=== PATIENT | female | born 1985 | race African-American/Black ===

== ENCOUNTER → 2017-01-05 | Outpatient (CLI) | payer SELFPAY | LOC: OD 13:06 | PROVIDERS: ATTEND Emergency Medicine | DX: F43.10 Post-traumatic stress disorder, unspecified (principal); Z53.8 Procedure and treatment not carried out for other reasons ==

== ENCOUNTER 2019-10-22 17:46 | Emergency (ER) | payer SELFPAY ==
[2019-10-22] MEDS ORDERED: ONDANSETRON HCL INJ/PF 4 MG/2 ML SDV IV ONE (19:31)
[2019-10-22 19:49] LABS: ABSOLUTE BASOPHILS # (AUTO) 0.1 10^3/uL (0.0-0.2); ABSOLUTE EOSINOPHILS # (AUTO) 0.2 10^3/uL (0.0-0.6); EOSINOPHILS % (AUTO) 2.2 % (0-6); TOTAL CELLS COUNTED % (AUTO) 100 %
[2019-10-22 19:54] LABS: ABSOLUTE LYMPHOCYTES (AUTO) 3.2 10^3/uL (0.5-4.7); ABSOLUTE MONOCYTES (AUTO) 0.4 10^3/uL (0.1-1.4); ABSOLUTE NEUT (AUTO) 6.8 10^3/uL (1.7-8.2); BASOPHILS % (AUTO) 0.6 % (0-2); HEMATOCRIT 35.7 % (36.0-47.0); HEMOGLOBIN 12.1 g/dL (12.0-15.5); LYMPHOCYTES % (AUTO) 29.4 % (13-45); MEAN CORPUSCULAR HEMOGLOBIN 30.7 pg (27.0-33.4); MEAN CORPUSCULAR HGB CONC 33.8 g/dL (32.0-36.0); MEAN CORPUSCULAR VOLUME 91 fl (80-97); PLATELET COUNT 333 10^3/uL (150-450); RED BLOOD COUNT 3.93 10^6/uL (3.72-5.28); RED CELL DISTRIBUTION WIDTH 14.1 % (11.5-14.0); SEGMENTED NEUTROPHILS % (AUTO) 63.8 % (42-78); WHITE BLOOD COUNT 10.7 10^3/uL (4.0-10.5)
[2019-10-22] MEDS: NORMAL SALINE 1000 ML 1,000 ML IV PRN ×2 (19:58→21:39)
[2019-10-22 19:59] LABS: APPEARANCE,URINE SLIGHTLY-CLOUDY; BILIRUBIN,URINE NEGATIVE (NEGATIVE); COLOR,URINE YELLOW; GLUCOSE, URINE NEGATIVE (NEGATIVE); KETONES,URINE TRACE mg/dL (NEGATIVE); LEUKOCYTE ESTERASE,URINE NEGATIVE (NEGATIVE); NITRITE,URINE NEGATIVE (NEGATIVE); PROTEIN,URINE 30 mg/dL (NEGATIVE); URINE SPECIFIC GRAVITY 1.018
--- NOTE | 2019-10-22 20:05 | ER Document Report ---
ED General - General Chief Complaint: Abdominal Pain Stated Complaint: ABDOMINAL PAIN, VOMITING Time Seen by Provider: 10/22/19 18:59 Primary Care Provider: MARY ARIAS MD [Primary Care Provider] - Follow up as needed TRAVEL OUTSIDE OF THE [place] IN LAST 30 DAYS: No - HPI Notes: Chief complaint: Nausea, vomiting, sore throat, malaise for 3 days. HPI: Generally healthy 34-year-old female with 3-day history of symptoms as above. Not eating and drinking today. Mild epigastric cramping. Takes no regular medications. No known allergies. Last menses unknown. No contraception. No known COVID exposure. No travel outside area. - Related Data Allergies/Adverse Reactions: No Known Allergies Allergy (Verified 10/22/19 18:28) Past Medical History - General Information source: Patient, [facility] Records - Social History Smoking Status: Current Every Day Smoker Frequency of alcohol use: None Drug Abuse: None Family History: Reviewed & Not Pertinent Patient has homicidal ideation: No Review of Systems - Review of Systems Notes: Constitutional: Subjective fever. HENT: Positive sore throat. Eyes: Negative for visual changes. Cardiovascular: Negative for chest pain. Respiratory: Negative for shortness of breath. Gastrointestinal: As per HPI no melena or hematochezia. Genitourinary: Negative for dysuria. Musculoskeletal: Negative for back pain. Skin: Negative for rash. Neurological: Dull headache present. No focal weakness or numbness. 10 point ROS negative except as marked above and in HPI. Physical Exam - Vital signs Vitals: Temp Pulse Resp BP Pulse Ox 99.7 F 100 18 119/90 H 100 10/22/19 17:46 10/22/19 17:46 10/22/19 17:46 10/22/19 17:46 10/22/19 17:46 - Notes Notes: Remote Exam Using Telemedicine System GENERAL: Well-developed well-nourished appearing in no acute distress. SKIN: no rashes. HEAD: Normocephalic atraumatic. EYES: PERRL. EOMI. Conjunctivae and sclerae clear. NOSE: CLEAR. MOUTH: Moist mucosa. Good dentition. No stridor or edema. No drooling. NECK: Full ROM. No visible masses or thyromegaly. No JVD. BACK: Symmetrical. CHEST: Respirations unlabored. Expands symmetrical. ABDOMEN: Non-distended. Nontender when I have the patient present all 4 quadrants. GENITALIA: Deferred. EXTREMITIES: No edema. NEUROLOGICAL: GCS 15. Alert and oriented x3. Normal gait. Fluent speech. Cranial nerves II through XII intact. Motor and cerebellar normal. PSYCHIATRIC: Appropriate affect. Course - Re-evaluation Re-evalutation: 10/23/19 02:00 Patient received 2 L normal saline. She also got some Zofran. She slept for an extended period time and upon awakening feels much better. She wants to go home and I think this is appropriate. Her influenza and strep tests are negative. Her CBC and chemistry profile are unremarkable and test is negative. Findings and recommendations discussed with the patient and she fully understands these and is in agreement with outpatient management. - Vital Signs Vital signs: Temp Pulse Resp BP Pulse Ox 98.1 F 80 16 119/79 100 10/23/19 01:51 10/23/19 01:51 10/23/19 01:51 10/23/19 01:51 10/23/19 01:51 - Laboratory Result Diagrams: 10/22/19 19:15 10/22/19 20:54 Laboratory results interpreted by me: 10/22/19 10/22/19 10/22/19 18:25 19:15 20:54 WBC 10.7 H Hct 35.7 L RDW 14.1 H Chloride 108 H Urine Protein 30 H Urine Ketones TRACE H Urine Urobilinogen 2.0 H 10/22/19 21:11 WBC Hct RDW Chloride Urine Protein 30 H Urine Ketones 20 H Urine Urobilinogen Discharge - Discharge Clinical Impression: Dehydration, Acute gastroenteritis Condition: Stable Disposition: HOME, SELF-CARE Instructions: Vomiting ([facility]) Additional Instructions: Increase oral fluids. Take Zofran as needed. Follow-up with your doctor within the next 24 hours. Return here as needed for new or worsening symptoms: Pain that is worsening or unimproved Uncontrolled vomiting High fever or shaking chills Overall worsening Referrals: MARY ARIAS MD [Primary Care Provider] - Follow up as needed
[2019-10-22 20:43] LABS: A TYPE INFLUENZA AG NEGATIVE (NEGATIVE)
[2019-10-22 20:44] LABS: B INFLUENZA AG NEGATIVE (NEGATIVE)
[2019-10-22 21:26] LABS: ALBUMIN 4.3 g/dL (3.5-5.0); ALKALINE PHOSPHATASE 69 U/L (38-126); ANION GAP 7 (5-19); ASPARTATE AMINO TRANSFERASE 20 U/L (14-36); BILIRUBIN,TOTAL 0.2 mg/dL (0.2-1.3); BLOOD UREA NITROGEN 8 mg/dL (7-20); CALCIUM 9.3 mg/dL (8.4-10.2); CARBON DIOXIDE 24 mmol/L (22-30); CHLORIDE 108 mmol/L (98-107); GLUCOSE 85 mg/dL (75-110); POTASSIUM 3.8 mmol/L (3.6-5.0); TOTAL PROTEIN 7.4 g/dL (6.3-8.2)
[2019-10-22 21:33] LABS: AMORPHOUS SEDIMENT,URINE 1+ /HPF; APPEARANCE,URINE TURBID; BILIRUBIN,URINE NEGATIVE (NEGATIVE); COLOR,URINE YELLOW; GLUCOSE, URINE NEGATIVE (NEGATIVE); KETONES,URINE 20 mg/dL (NEGATIVE); PROTEIN,URINE 30 mg/dL (NEGATIVE); UROBILINOGEN,URINE NEGATIVE mg/dL (<2.0)
[2019-10-23] MEDS ORDERED: ONDANSETRON 4 MG TAB.RAPDIS PO ONE (01:46)
[2019-10-23] MEDS ORDERED: ONDANSETRON ODT 4 MG TAB (6 TAB/ER DISP) PO PRN (01:52)
[2019-10-23 01:53] VITALS: BP 119/79
== END 2019-10-23 02:17 | disposition home or self-care (01) ==
LOC: ER 17:46
DX: K52.9 Noninfective gastroenteritis and colitis, unspecified (principal); E86.0 Dehydration; R11.2 Nausea with vomiting, unspecified; J02.9 Acute pharyngitis, unspecified; R53.81 Other malaise; R10.13 Epigastric pain; F17.200 Nicotine dependence, unspecified, uncomplicated
CPT/HCPCS: 99283; 96361; 96374; 36415; 87070; 87880; 83690; 83735; 84703; 85025; 80053; 81001; 87804; S0119; J2405; J7030

== ENCOUNTER 2019-10-31 21:29 | Inpatient (IN) | payer SELFPAY ==
[2019-10-31 23:47] LABS: ABSOLUTE BASOPHILS # (AUTO) 0.1 10^3/uL (0.0-0.2); ABSOLUTE LYMPHOCYTES (AUTO) 2.5 10^3/uL (0.5-4.7); ABSOLUTE MONOCYTES (AUTO) 1.4 10^3/uL (0.1-1.4); ABSOLUTE NEUT (AUTO) 9.8 10^3/uL (1.7-8.2); BASOPHILS % (AUTO) 0.8 % (0-2); EOSINOPHILS % (AUTO) 0.1 % (0-6); HEMATOCRIT 37.6 % (36.0-47.0); HEMOGLOBIN 12.3 g/dL (12.0-15.5); MEAN CORPUSCULAR HEMOGLOBIN 29.8 pg (27.0-33.4); MEAN CORPUSCULAR HGB CONC 32.8 g/dL (32.0-36.0); MEAN CORPUSCULAR VOLUME 91 fl (80-97); MONOCYTES % (AUTO) 10.3 % (3-13); PLATELET COUNT 266 10^3/uL (150-450); RED BLOOD COUNT 4.14 10^6/uL (3.72-5.28); RED CELL DISTRIBUTION WIDTH 14.1 % (11.5-14.0); SEGMENTED NEUTROPHILS % (AUTO) 70.8 % (42-78); TOTAL CELLS COUNTED % (AUTO) 100 %; WHITE BLOOD COUNT 13.8 10^3/uL (4.0-10.5)
[2019-10-31 23:52] LABS: ALBUMIN 4.3 g/dL (3.5-5.0); ALKALINE PHOSPHATASE 104 U/L (38-126); ANION GAP 12 (5-19); ASPARTATE AMINO TRANSFERASE 663 U/L (14-36); BILIRUBIN,DIRECT 0.4 mg/dL (0.0-0.4); BLOOD UREA NITROGEN 7 mg/dL (7-20); CALCIUM 9.7 mg/dL (8.4-10.2); CARBON DIOXIDE 19 mmol/L (22-30); CHLORIDE 108 mmol/L (98-107); POTASSIUM 3.6 mmol/L (3.6-5.0); SALICYLATE 1.2 mg/dL (2.0-20.0); TOTAL PROTEIN 7.4 g/dL (6.3-8.2)
[2019-10-31 23:57] LABS: ALCOHOL < 10 mg/dL (NONE DETECTED)
[2019-11-01] LABS: ACETAMINOPHEN 125 ug/mL (10-30); GLUCOSE 49 mg/dL (75-110)
--- NOTE | 2019-11-01 00:14 | ER Document Report ---
ED General - General Chief Complaint: Overdose Stated Complaint: POSSIBLE OVERDOSE Time Seen by Provider: 10/31/19 22:58 Primary Care Provider: MARY ARIAS MD [Primary Care Provider] - Follow up as needed Mode of Arrival: Ambulatory Information source: Patient TRAVEL OUTSIDE OF THE [place] IN LAST 30 DAYS: No - HPI Onset: Other - patient ingested Tylenol at 1600 in an attempt to harm herself. Onset/Duration: Sudden Quality of pain: Achy, Cramping Severity: Moderate Pain Level: 3 Associated symptoms: Nausea, Vomiting Exacerbated by: Denies Relieved by: Denies Similar symptoms previously: Yes - patient has had thoughts of SI before Recently seen / treated by doctor: No Notes: 34 year old female with a history of Depression here in the ER for evaluation after a suicide attempt. The patient says she took 30 tablets of Tylenol at 1600 in an attempt to kill herself. The patient says she has a lot going on with her right now and it is hard for her to handle things. The patient has developed abdominal pain, nausea, and vomiting since the Tylenol ingestion. - Related Data Allergies/Adverse Reactions: No Known Allergies Allergy (Verified 10/22/19 18:28) Past Medical History - General Information source: Patient - Social History Smoking Status: Current Every Day Smoker Frequency of alcohol use: None Drug Abuse: None Family History: Reviewed & Not Pertinent Patient has homicidal ideation: No Review of Systems - Review of Systems Constitutional: No symptoms reported EENT: No symptoms reported Cardiovascular: No symptoms reported Respiratory: No symptoms reported Gastrointestinal: Abdominal pain, Nausea, Vomiting Genitourinary: No symptoms reported Female Genitourinary: No symptoms reported Musculoskeletal: No symptoms reported Skin: No symptoms reported Hematologic/Lymphatic: No symptoms reported Neurological/Psychological: Depression, Suicidal ideation, Other -: Yes All other systems reviewed and negative Physical Exam - Vital signs Vitals: Temp Pulse Resp BP Pulse Ox 98.4 F 96 16 98/70 L 94 10/31/19 21:34 10/31/19 21:34 10/31/19 21:34 10/31/19 21:34 10/31/19 21:34 - Notes Notes: GENERAL: Poorly groomed. Well-nourished slightly lethargic. HEAD: Atraumatic, normocephalic. EYES: Pupils equal round and reactive to light, extraocular movements intact, sclera anicteric, conjunctiva are normal. ENT: External ears normal, nares patent, oropharynx clear without exudates. Moist mucous membranes. NECK: Normal range of motion, supple without lymphadenopathy or JVD. LUNGS: Breath sounds clear to auscultation bilaterally and equal. No wheezes rales or rhonchi. HEART: Regular rate and rhythm without murmurs, rubs or gallops. ABDOMEN: Soft, mild tenderness throughout, normoactive bowel sounds. No guarding, no rebound. No masses appreciated. EXTREMITIES: Normal range of motion, no pitting or edema. No clubbing or cyanosis. NEUROLOGICAL: Cranial nerves II through XII grossly intact. Slightly slurred speech, normal gait. PSYCH: Normal mood, normal affect. SKIN: Warm, Dry, normal turgor, no rashes or lesions noted. Course - Re-evaluation Re-evalutation: 11/01/19 00:44 The patient tried to kill herself by taking 30 tablets of Tylenol. The patient has nausea, vomiting, abdominal pain and elevated LFTs. Poison control contacted and they requested the patient received NAC since she has elevated AST and ALT and since she is symptomatic (nausea, vomiting, abdominal pain). Patient admitted to a step down bed. Psych will need to see the patient once she is medically cleared. - Vital Signs Vital signs: Temp Pulse Resp BP Pulse Ox 98.4 F 96 27 H 115/63 100 10/31/19 21:54 10/31/19 21:34 11/01/19 00:12 11/01/19 00:01 11/01/19 00:12 - Laboratory Result Diagrams: 10/31/19 23:26 10/31/19 23:26 Laboratory results interpreted by me: 10/31/19 10/31/19 23:26 23:26 WBC 13.8 H RDW 14.1 H Absolute Neuts (auto) 9.8 H Chloride 108 H Carbon Dioxide 19 L Glucose 49 L AST 663 H ALT 604 H Salicylates 1.2 L Acetaminophen 125 H* Critical Care Note - Critical Care Note Total time excluding time spent on procedures (mins): 43 Discharge - Discharge Clinical Impression: Suicidal ideation Tylenol overdose Qualifiers: Encounter type: initial encounter Injury intent: intentional self-harm Qualified Code(s): T39.1X2A - Poisoning by 4-Aminophenol derivatives, intentional self-harm, initial encounter Condition: Serious Disposition: ADMITTED INPATIENT Admitting Provider: Robert (Hospitalist) Unit Admitted: I[facility]U Referrals: MARY ARIAS MD [Primary Care Provider] - Follow up as needed
[2019-11-01] MEDS ORDERED: ACETYLCYSTEINE INJ 6000 MG/30 ML IV ONE (00:34)
[2019-11-01 01:19] LABS: INTERNATIONAL RATION (INR) 1.32; PARTIAL THROMBOPLASTIN TIME 20.8 SEC (23.5-35.8); PROTHROMBIN TIME 16.5 SEC (11.4-15.4)
[2019-11-01] MEDS ORDERED: ONDANSETRON HCL INJ/PF 4 MG/2 ML SDV IV ONE (02:43)
[2019-11-01] MEDS ORDERED: MAG HYDROX/AL HYDROX/SIMETH SUSP 30 ML UDCUP PO PRN (03:27)
[2019-11-01] MEDS ORDERED: MAGNESIUM HYDROXIDE SUSP 30 ML UDCUP PO PRN (03:27)
--- NOTE | 2019-11-01 04:16 | PDOC H&P ---
History of Present Illness Admission Date/PCP: 11/01/19 00:55 MARY ARIAS MD Patient complains of: Intentional overdose History of Present Illness: LOULOU PRICE is a 34 year old female who presented to the emergency room with a history of intentional overdose using Tylenol at 4 PM approximately 7 hours prior to her emergency room presentation. She admits to taking 30 Tylenol tablets (unknown size) in an attempt to end her life. She relates that she has been under a great deal of stress and she is unable to cope with her situation at this time. Since her ingestion she developed mild generalized colicky upper abdominal pain with nausea and vomiting. She denies other associated or accompanying signs and symptoms. She denies a prior similar episodes. She has not identified any additional aggravating or ameliorating factors for her intentional overdose. She does admit to having previous episodes where she has seriously contemplated suicide. In the emergency room she was found to have an acetaminophen level of 125 7.5 hours after ingestion. Her liver enzymes were also noted to be elevated and poison control recommended that she be hospitalized and treated with intravenous Mucomyst. Patient was subsequently admitted to the [facility] for further evaluation treatment. Past Medical History Cardiac Medical History: Denies: Coronary Artery Disease, Hyperlipidema, Hypertension Pulmonary Medical History: Denies: Asthma, Chronic Obstructive Pulmonary Disease (COPD) EENT Medical History: Denies: Cataracts, Ears - Hearing aids Neurological Medical History: Denies: Multiple Sclerosis, Seizures Endocrine Medical History: Denies: Diabetes Mellitus Type 1, Diabetes Mellitus Type 2, Hyperthyroidism, Hypothyroidism, Obesity Renal/ Medical History: Denies: Chronic Kidney Disease, Nephrolithiasis Malignancy Medical History: Reports: None GI Medical History: Denies: Cirrhosis, Crohn's Disease, Gastroesophageal Reflux Disease, Hepatitis, Peptic Ulcer Disease, Ulcerative Colitis Musculoskeltal Medical History: Denies: Arthritis, Fibromyalgia, Gout Skin Medical History: Denies: Eczema, Psoriasis Psychiatric Medical History: Denies: Alcohol Dependency, Substance Abuse, Tobacco Dependency Traumatic Medical History: Reports: None Hematology: Denies: Anemia, Bleeding Tendencies Infectious Medical History: Reports: None Past Surgical History Past Surgical History: Reports: Cholecystectomy Social History Information Source: Patient Lives with: Spouse/Significant other Smoking Status: Current Every Day Smoker Electronic Cigarette use?: No Frequency of Alcohol Use: None Hx Recreational Drug Use: No Drugs: None Hx Prescription Drug Abuse: No - Advance Directive Resuscitation Status: Full Code Surrogate healthcare decision maker:: Deepak Price Family History Family History: CAD, DM, Hypertension, Malignancy Parental Family History Reviewed: Yes Children Family History Reviewed: No Sibling(s) Family History Reviewed.: Yes Medication/Allergy Allergies/Adverse Reactions: No Known Allergies Allergy (Verified 10/22/19 18:28) Review of Systems Constitutional: ABSENT: chills, fever(s) Eyes: ABSENT: visual disturbances, other - Ocular pain Ears: ABSENT: hearing changes, other - Ear pain Nose, Mouth, and Throat: ABSENT: headache(s), sore throat Cardiovascular: ABSENT: chest pain, palpitations Respiratory: ABSENT: cough, dyspnea Gastrointestinal: PRESENT: as per HPI, abdominal pain, nausea, vomiting. ABSENT: constipation, diarrhea Genitourinary: ABSENT: dysuria, hematuria Musculoskeletal: ABSENT: back pain, joint swelling Integumentary: ABSENT: pruritus, rash Neurological: ABSENT: confusion, convulsions, focal weakness, memory loss, syncope Psychiatric: PRESENT: depression, suicidal ideation. ABSENT: anxiety Endocrine: ABSENT: cold intolerance, heat intolerance Hematologic/Lymphatic: ABSENT: easy bleeding, easy bruising Allergic/Immunologic: ABSENT: seasonal rhinorrhea Physical Exam Vital Signs: Temp Pulse Resp BP Pulse Ox 98.4 F 96 27 H 115/63 100 10/31/19 21:54 10/31/19 21:34 11/01/19 00:12 11/01/19 00:01 11/01/19 00:12 Intake & Output 10/30/19 10/31/19 11/01/19 23:59 23:59 23:59 Weight 59.6 kg General appearance: PRESENT: no acute distress, cooperative, well-developed Head exam: PRESENT: atraumatic, normocephalic Eye exam: PRESENT: conjunctiva pink. ABSENT: conjunctival injection, scleral icterus Ear exam: PRESENT: normal external ear exam. ABSENT: bleeding, drainage Mouth exam: PRESENT: dry mucosa, neck supple Neck exam: ABSENT: thyromegaly, tracheal deviation Respiratory exam: PRESENT: clear to auscultation jonny, symmetrical, unlabored Cardiovascular exam: PRESENT: RRR. ABSENT: clicks, gallop, rubs Pulses: PRESENT: normal radial pulses, normal dorsalis pedis pul Vascular exam: PRESENT: normal capillary refill. ABSENT: pallor GI/Abdominal exam: PRESENT: normal bowel sounds, soft, tenderness - Mild nonlocalized right upper quadrant tenderness Rectal exam: PRESENT: deferred Extremities exam: ABSENT: joint swelling, pedal edema Musculoskeletal exam: ABSENT: deformity, dislocation Neurological exam: PRESENT: alert, oriented to person, oriented to place, oriented to time, oriented to situation, CN II-XII grossly intact. ABSENT: motor sensory deficit Psychiatric exam: PRESENT: appropriate affect, normal mood Skin exam: PRESENT: dry, intact, warm. ABSENT: jaundice, rash, urticaria Results Laboratory Results: 10/31/19 23:26 10/31/19 23:26 10/31/19 10/31/19 23:26 23:26 WBC 13.8 H RBC 4.14 Hgb 12.3 Hct 37.6 MCV 91 MCH 29.8 MCHC 32.8 RDW 14.1 H Plt Count 266 Seg Neutrophils % 70.8 Sodium 139.2 Potassium 3.6 Chloride 108 H Carbon Dioxide 19 L Anion Gap 12 BUN 7 Creatinine 0.74 Est GFR ( Amer) > 60 Glucose 49 L Calcium 9.7 Total Bilirubin 1.0 AST 663 H Alkaline Phosphatase 104 Total Protein 7.4 Albumin 4.3 Assessment and Plan - Diagnosis (1) Suicide attempt by acetaminophen overdose Qualifiers: Encounter type: initial encounter Qualified Code(s): T39.1X2A - Poisoning by 4-Aminophenol derivatives, intentional self-harm, initial encounter Is this a current diagnosis for this admission?: Yes (2) Elevated liver function tests Is this a current diagnosis for this admission?: Yes (3) Hypoglycemia Is this a current diagnosis for this admission?: Yes (4) Depression Qualifiers: Depression Type: unspecified Qualified Code(s): F32.9 - Major depressive disorder, single episode, unspecified Is this a current diagnosis for this admission?: Yes (5) Suicidal ideation Is this a current diagnosis for this admission?: Yes (6) Tobacco use disorder Is this a current diagnosis for this admission?: Yes - Plan Summary Summary: Patient is admitted to [facility] where she will receive routine supportive and symptomatic cares. She will receive intravenous Mucomyst as per poison control dosing guidelines. Serial liver function studies and acetaminophen levels will be obtained as well as CBCs, metabolic profiles and magnesium levels when required. Blood sugar will be monitored every 6 hours. Patient will be treated with IV fluids containing 5% dextrose. Psychiatry consultation will be obtained as soon as possible. Patient will receive Ativan 1 mg IV every 4 hours as needed anxiety or restlessness. Smoking cessation is advised and counseled briefly at the bedside. A nicotine replacement patch is available for the patient's use, if desired. - Time Time Spent with patient: 15-24 minutes Smoking Cessation Education: 3 to 10 minutes Anticipated discharge: Other - Psychiatric inpatient therapy - Inpatient Certification Based on my medical assessment, after consideration of the patient's comorbidities, presenting symptoms, or acuity I expect that the services needed warrant INPATIENT care.: Yes I certify that my determination is in accordance with my understanding of Medicare's requirements for reasonable and necessary INPATIENT services [42 CFR 412.3e].: Yes Medical Necessity: Need Close Monitoring Due to Risk of Patient Decompensation, Need For IV Fluids, Need For Continuous Telemetry Monitoring, Risk of Complication if Not Cared For in Hospital
[2019-11-01] MEDS ORDERED: ACETYLCYSTEINE INJ 6000 MG/30 ML IV SCH (04:30)
[2019-11-01] MEDS ORDERED: ACETYLCYSTEINE 20% SOLN 6000 MG/30 ML VIAL ONE (05:12)
[2019-11-01] MEDS: DEXTROSE 5% IV PRN ×6 (05:33→20:00)
[2019-11-01] MEDS: ACETYLCYSTEINE IV PRN ×6 (05:33→20:00)
[2019-11-01] MEDS: WATER IV PRN ×6 (05:33→20:00)
[2019-11-01] MEDS: HEPARIN SOD (PORCINE) 5,000 UNIT/ML 1 ML VIAL SUBCUT SCH ×3 (05:53→21:59)
[2019-11-01 07:01] LABS: ALBUMIN 4.8 g/dL (3.5-5.0); ALKALINE PHOSPHATASE 104 U/L (38-126); BILIRUBIN,DIRECT 0.7 mg/dL (0.0-0.4); BILIRUBIN,TOTAL 1.8 mg/dL (0.2-1.3)
--- NOTE | 2019-11-01 07:12 | EKG REPORT ---
SEVERITY:- NORMAL ECG - SINUS RHYTHM : Confirmed by: Moises Noble MD 01-Nov-2019 07:11:05
[2019-11-01 07:19] LABS: ASPARTATE AMINO TRANSFERASE 1615 U/L (14-36)
[2019-11-01] MEDS: DOCUSATE SODIUM 100 MG CAPSULE PO SCH ×3 (09:59→17:12)
[2019-11-01] MEDS: PANTOPRAZOLE SODIUM 40 MG VIAL IV SCH ×2 (10:00→21:58)
[2019-11-01 17:39] LABS: APPEARANCE,URINE TURBID; BILIRUBIN,URINE NEGATIVE (NEGATIVE); GLUCOSE, URINE 150 mg/dL (NEGATIVE); KETONES,URINE 20 mg/dL (NEGATIVE); LEUKOCYTE ESTERASE,URINE NEGATIVE (NEGATIVE); NITRITE,URINE NEGATIVE (NEGATIVE); PROTEIN,URINE 30 mg/dL (NEGATIVE); URINE SPECIFIC GRAVITY 1.033
[2019-11-01 17:45] LABS: COLOR,URINE YELLOW
[2019-11-01 17:49] LABS: URINE AMPHETAMINES SCREEN NEGATIVE; URINE BARBITURATES SCREEN NEGATIVE; URINE BENZODIAZEPINES SCREEN NEGATIVE; URINE COCAINE SCREEN NEGATIVE; URINE MARIJUANA (THC) SCREEN NEGATIVE; URINE METHADONE SCREEN NEGATIVE; URINE PHENCYCLIDINE SCREEN NEGATIVE
[2019-11-01 20:00] LABS: ASPARTATE AMINO TRANSFERASE 1752 U/L (14-36)
[2019-11-01 20:17] LABS: ALBUMIN 4.1 g/dL (3.5-5.0); ALKALINE PHOSPHATASE 79 U/L (38-126); BILIRUBIN,DIRECT 0.4 mg/dL (0.0-0.4); BILIRUBIN,TOTAL 1.8 mg/dL (0.2-1.3); TOTAL PROTEIN 7.1 g/dL (6.3-8.2)
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
[2019-11-01 23:56] LABS: ACETAMINOPHEN 12 ug/mL (10-30); ALBUMIN 3.7 g/dL (3.5-5.0); ALKALINE PHOSPHATASE 80 U/L (38-126); BILIRUBIN,DIRECT 0.7 mg/dL (0.0-0.4); BILIRUBIN,TOTAL 2.1 mg/dL (0.2-1.3); TOTAL PROTEIN 6.5 g/dL (6.3-8.2)
[2019-11-02 00:18] LABS: ASPARTATE AMINO TRANSFERASE 1500 U/L (14-36)
[2019-11-02] MEDS: HEPARIN SOD (PORCINE) 5,000 UNIT/ML 1 ML VIAL SUBCUT SCH ×3 (05:30→21:12)
[2019-11-02] MEDS: WATER IV PRN ×6 (05:31→21:13)
[2019-11-02] MEDS: DEXTROSE 5% IV PRN ×6 (05:31→21:13)
[2019-11-02] MEDS: ACETYLCYSTEINE IV PRN ×6 (05:31→21:13)
[2019-11-02 06:03] LABS: HEMATOCRIT 34.8 % (36.0-47.0); HEMOGLOBIN 11.8 g/dL (12.0-15.5); MEAN CORPUSCULAR HEMOGLOBIN 30.3 pg (27.0-33.4); MEAN CORPUSCULAR VOLUME 89 fl (80-97); PLATELET COUNT 266 10^3/uL (150-450); RED CELL DISTRIBUTION WIDTH 13.9 % (11.5-14.0); WHITE BLOOD COUNT 13.1 10^3/uL (4.0-10.5)
[2019-11-02 06:32] LABS: ALBUMIN 3.7 g/dL (3.5-5.0); ALKALINE PHOSPHATASE 92 U/L (38-126); ANION GAP 10 (5-19); BILIRUBIN,DIRECT 0.9 mg/dL (0.0-0.4); BILIRUBIN,TOTAL 2.5 mg/dL (0.2-1.3); BLOOD UREA NITROGEN 7 mg/dL (7-20); CALCIUM 8.9 mg/dL (8.4-10.2); CARBON DIOXIDE 18 mmol/L (22-30); CHLORIDE 106 mmol/L (98-107); GLUCOSE 123 mg/dL (75-110); TOTAL PROTEIN 6.5 g/dL (6.3-8.2)
[2019-11-02 06:35] LABS: INTERNATIONAL RATION (INR) 3.69; PROTHROMBIN TIME 37.5 SEC (11.4-15.4)
[2019-11-02 07:05] LABS: ASPARTATE AMINO TRANSFERASE 1548 U/L (14-36)
[2019-11-02] MEDS: PANTOPRAZOLE SODIUM 40 MG VIAL IV SCH ×2 (11:24→21:13)
[2019-11-02] MEDS: DOCUSATE SODIUM 100 MG CAPSULE PO SCH ×2 (11:24→17:13)
[2019-11-02] MEDS: ONDANSETRON HCL INJ/PF 4 MG/2 ML SDV IV PRN (12:45)
--- NOTE | 2019-11-02 14:40 | PDOC PROGRESS REPORT ---
Subjective Progress Note for:: 11/02/19 Subjective:: No adverse events overnight. No new complaints. Patient did not want talk to me. Whenever I tried to arouse her from sleep she would not open her eyes. She has not complained to anyone of any abdominal pain. Her vital signs have been stable. Reason For Visit: ACUTE ACETAINOPHEN OVERDOSE,INTENTIONAL Physical Exam Vital Signs: Temp Pulse Resp BP Pulse Ox 98.3 F 75 16 92/48 L 100 11/02/19 11:44 11/02/19 11:44 11/02/19 11:44 11/02/19 11:44 11/02/19 11:44 Intake & Output 11/01/19 11/02/19 11/03/19 06:59 06:59 06:59 Intake Total 120 3630 443 Output Total 300 Balance 120 3330 443 Weight 55.7 kg 52.8 kg General appearance: PRESENT: no acute distress. ABSENT: cooperative Head exam: PRESENT: atraumatic, normocephalic Cardiovascular exam: PRESENT: other - Normal sinus rhythm on telemetry GI/Abdominal exam: ABSENT: distended Extremities exam: ABSENT: clubbing, pedal edema Musculoskeletal exam: PRESENT: normal inspection. ABSENT: deformity Neurological exam: ABSENT: awake - If she was awake, she was ignoring me Skin exam: PRESENT: dry. ABSENT: jaundice Results Laboratory Results: 11/02/19 05:06 11/02/19 05:06 10/31/19 11/01/19 11/01/19 15:24 18:21 23:30 WBC RBC Hgb Hct MCV MCH MCHC RDW Plt Count Sodium Potassium Chloride Carbon Dioxide Anion Gap BUN Creatinine Est GFR ( Amer) Glucose Calcium Magnesium Total Bilirubin 1.8 H 2.1 H AST 1752 H 1500 H Alkaline Phosphatase 79 80 Total Protein 7.1 6.5 Albumin 4.1 3.7 Urine Color YELLOW Urine Appearance TURBID Urine pH 5.0 Ur Specific Troy 1.033 Urine Protein 30 H Urine Glucose (UA) 150 H Urine Ketones 20 H Urine Blood NEGATIVE Urine Nitrite NEGATIVE Ur Leukocyte Esterase NEGATIVE Urine WBC (Auto) 9 Urine RBC (Auto) 1 11/02/19 11/02/19 05:06 05:06 WBC 13.1 H RBC 3.90 Hgb 11.8 L Hct 34.8 L MCV 89 MCH 30.3 MCHC 34.0 RDW 13.9 Plt Count 266 Sodium 134.0 L Potassium 4.0 Chloride 106 Carbon Dioxide 18 L Anion Gap 10 BUN 7 Creatinine 0.62 Est GFR ( Amer) > 60 Glucose 123 H Calcium 8.9 Magnesium 2.1 Total Bilirubin 2.5 H AST 1548 H Alkaline Phosphatase 92 Total Protein 6.5 Albumin 3.7 Urine Color Urine Appearance Urine pH Ur Specific Troy Urine Protein Urine Glucose (UA) Urine Ketones Urine Blood Urine Nitrite Ur Leukocyte Esterase Urine WBC (Auto) Urine RBC (Auto) Assessment and Plan - Diagnosis (1) Depression Qualifiers: Depression Type: unspecified Qualified Code(s): F32.9 - Major depressive disorder, single episode, unspecified Is this a current diagnosis for this admission?: Yes Plan: Psychiatry has cleared her from psychiatric services. (2) Elevated liver function tests Is this a current diagnosis for this admission?: Yes Plan: We will keep her on acetylcysteine until her INR is less than 2 and her ALT is trending down substantially (3) Suicide attempt by acetaminophen overdose Qualifiers: Encounter type: initial encounter Qualified Code(s): T39.1X2A - Poisoning by 4-Aminophenol derivatives, intentional self-harm, initial encounter Is this a current diagnosis for this admission?: Yes Plan: As previously noted, she has been cleared from psychiatric services (4) Tobacco use disorder Is this a current diagnosis for this admission?: Yes Plan: We will encourage cessation - Plan Summary Summary: Patient is admitted to [facility] where she will receive routine supportive and symptomatic cares. She will receive intravenous Mucomyst as per poison control dosing guidelines. Serial liver function studies and acetaminophen levels will be obtained as well as CBCs, metabolic profiles and magnesium levels when required. Blood sugar will be monitored every 6 hours. Patient will be treated with IV fluids containing 5% dextrose. Psychiatry consultation will be obtained as soon as possible. Patient will receive Ativan 1 mg IV every 4 hours as needed anxiety or restlessness. Smoking cessation is advised and counseled briefly at the bedside. A nicotine replacement patch is available for the patient's use, if desired. - Time Time Spent with patient: Less than 15 minutes
[2019-11-02 18:52] LABS: ALBUMIN 3.7 g/dL (3.5-5.0); ALKALINE PHOSPHATASE 112 U/L (38-126); BILIRUBIN,DIRECT 1.2 mg/dL (0.0-0.4); BILIRUBIN,TOTAL 2.9 mg/dL (0.2-1.3); TOTAL PROTEIN 6.6 g/dL (6.3-8.2)
[2019-11-02 19:23] LABS: ASPARTATE AMINO TRANSFERASE 11217 U/L (14-36)
[2019-11-02] MEDS: OLANZAPINE 5 MG TABLET PO SCH (21:10)
[2019-11-02] MEDS: BENZTROPINE MESYLATE 1 MG TABLET PO SCH (21:11)
[2019-11-02] MEDS: BUSPIRONE HCL 10 MG TABLET PO SCH (21:12)
[2019-11-03] MEDS: ONDANSETRON HCL INJ/PF 4 MG/2 ML SDV IV PRN ×2 (03:55→12:31)
[2019-11-03] MEDS: HEPARIN SOD (PORCINE) 5,000 UNIT/ML 1 ML VIAL SUBCUT SCH ×3 (05:22→21:21)
[2019-11-03 07:04] LABS: HEMATOCRIT 36.8 % (36.0-47.0); HEMOGLOBIN 12.3 g/dL (12.0-15.5); MEAN CORPUSCULAR HEMOGLOBIN 29.4 pg (27.0-33.4); MEAN CORPUSCULAR HGB CONC 33.4 g/dL (32.0-36.0); MEAN CORPUSCULAR VOLUME 88 fl (80-97); PLATELET COUNT 188 10^3/uL (150-450); RED BLOOD COUNT 4.17 10^6/uL (3.72-5.28); WHITE BLOOD COUNT 13.7 10^3/uL (4.0-10.5)
[2019-11-03 09:43] LABS: ALBUMIN 3.2 g/dL (3.5-5.0); ALKALINE PHOSPHATASE 116 U/L (38-126); ANION GAP 10 (5-19); BILIRUBIN,DIRECT 1.3 mg/dL (0.0-0.4); BILIRUBIN,TOTAL 2.9 mg/dL (0.2-1.3); BLOOD UREA NITROGEN 13 mg/dL (7-20); CALCIUM 8.7 mg/dL (8.4-10.2); CARBON DIOXIDE 19 mmol/L (22-30); CHLORIDE 104 mmol/L (98-107); GLUCOSE 92 mg/dL (75-110); POTASSIUM 3.2 mmol/L (3.6-5.0); TOTAL PROTEIN 5.9 g/dL (6.3-8.2)
[2019-11-03] MEDS: OLANZAPINE 5 MG TABLET PO SCH ×2 (09:55→21:25)
[2019-11-03] MEDS: BUSPIRONE HCL 10 MG TABLET PO SCH ×2 (09:55→21:25)
[2019-11-03] MEDS: DOCUSATE SODIUM 100 MG CAPSULE PO SCH ×2 (09:55→17:15)
[2019-11-03] MEDS: PANTOPRAZOLE SODIUM 40 MG VIAL IV SCH ×2 (09:55→21:25)
[2019-11-03 10:02] LABS: INTERNATIONAL RATION (INR) 6.13; PROTHROMBIN TIME 56.3 SEC (11.4-15.4)
[2019-11-03 10:03] LABS: ASPARTATE AMINO TRANSFERASE 7364 U/L (14-36)
[2019-11-03] MEDS: ACETYLCYSTEINE IV PRN ×4 (13:22→20:07)
[2019-11-03] MEDS: DEXTROSE 5% IV PRN ×4 (13:22→20:07)
[2019-11-03] MEDS: WATER IV PRN ×4 (13:22→20:07)
--- NOTE | 2019-11-03 15:00 | PDOC PROGRESS REPORT ---
Subjective Progress Note for:: 11/03/19 Subjective:: Overnight the patient's INR and transaminases increased precipitously. INR went up to 8.4 and her transaminases were both up over 11,000. Patient's mental status and vital signs all remained stable. She says she does not feel very good today but she is mentating properly. Reason For Visit: ACUTE ACETAINOPHEN OVERDOSE,INTENTIONAL Physical Exam Vital Signs: Temp Pulse Resp BP Pulse Ox 97.4 F 108 H 18 99/66 L 100 11/03/19 12:34 11/03/19 12:34 11/03/19 12:34 11/03/19 12:34 11/03/19 12:34 Intake & Output 11/02/19 11/03/19 11/04/19 06:59 06:59 06:59 Intake Total 3630 1373 530 Output Total 300 300 Balance 3330 1073 530 Weight 52.8 kg 57.7 kg 57.7 kg General appearance: PRESENT: no acute distress, cooperative Respiratory exam: PRESENT: clear to auscultation jonny, symmetrical, unlabored. ABSENT: accessory muscle use, chest wall tenderness, crackles, prolonged expiratory phas, rhonchi, tachypnea, wheezes Cardiovascular exam: PRESENT: RRR, +S1, +S2 Pulses: PRESENT: normal carotid pulses Vascular exam: PRESENT: normal capillary refill GI/Abdominal exam: PRESENT: normal bowel sounds, soft. ABSENT: distended, guarding, rebound, tenderness Extremities exam: ABSENT: clubbing, pedal edema Musculoskeletal exam: PRESENT: normal inspection. ABSENT: deformity Neurological exam: PRESENT: alert, awake, oriented to person, oriented to place, oriented to time, oriented to situation, CN II-XII grossly intact Psychiatric exam: PRESENT: flat affect Skin exam: PRESENT: dry, warm. ABSENT: jaundice Results Laboratory Results: 11/03/19 06:27 11/03/19 09:00 11/02/19 11/03/19 11/03/19 17:59 06:27 06:27 WBC 13.7 H RBC 4.17 Hgb 12.3 Hct 36.8 MCV 88 MCH 29.4 MCHC 33.4 RDW 14.0 Plt Count 188 Sodium Potassium Chloride Carbon Dioxide Anion Gap BUN Creatinine Est GFR ( Amer) Glucose Calcium Magnesium 1.7 Total Bilirubin 2.9 H AST 90430 H Alkaline Phosphatase 112 Ammonia Total Protein 6.6 Albumin 3.7 11/03/19 11/03/19 09:00 10:56 WBC RBC Hgb Hct MCV MCH MCHC RDW Plt Count Sodium 132.9 L Potassium 3.2 L Chloride 104 Carbon Dioxide 19 L Anion Gap 10 BUN 13 Creatinine 0.96 Est GFR ( Amer) > 60 Glucose 92 Calcium 8.7 Magnesium Total Bilirubin 2.9 H AST 7364 H Alkaline Phosphatase 116 Ammonia 54.3 H Total Protein 5.9 L Albumin 3.2 L Assessment and Plan - Diagnosis (1) Depression Qualifiers: Depression Type: unspecified Qualified Code(s): F32.9 - Major depressive disorder, single episode, unspecified Is this a current diagnosis for this admission?: Yes Plan: Psychiatry has cleared her from psychiatric services. We have started medications that they have recommended. (2) Elevated liver function tests Is this a current diagnosis for this admission?: Yes (3) Suicide attempt by acetaminophen overdose Qualifiers: Encounter type: initial encounter Qualified Code(s): T39.1X2A - Poisoning by 4-Aminophenol derivatives, intentional self-harm, initial encounter Is this a current diagnosis for this admission?: Yes Plan: As previously noted, she has been cleared from psychiatric services (4) Tobacco use disorder Is this a current diagnosis for this admission?: Yes Plan: We will encourage cessation (5) Acute liver failure without hepatic coma Is this a current diagnosis for this admission?: Yes Plan: She has been on an acetylcysteine infusion since admission. Her studies wo rsened overnight. Fortunately, her mental status and her vital signs are okay. I spoke with Dr. Darling, a fishing vessel mate at [facility]. He recommended checking a hepatitis panel. He also recommended that she be transferred to their facility. They do not have beds available at this time and because of the current coronavirus issues they are not keeping a waiting list. He does want to have this patient at their facility, and he recommended that I check back in frequently to see if the bed has opened up. If she has any alteration in her mental status or her vital signs, she is to be transferred to the intensive care unit and Dr. Darling will be notified. Fortunately, 1 of her transaminases is c ome down and her INR has come down some but this morning. I have not given her FFP because I need to be able to follow the trend in her INR to make sure she is improving. Obviously if she shows any signs of bleeding we will have to intervene. - Plan Summary Summary: Patient is admitted to [facility] where she will receive routine supportive and symptomatic cares. She will receive intravenous Mucomyst as per poison control dosing guidelines. Serial liver function studies and acetaminophen levels will be obtained as well as CBCs, metabolic profiles and magnesium levels when required. Blood sugar will be monitored every 6 hours. Patient will be treated with IV fluids containing 5% dextrose. Psychiatry consultation will be obtained as soon as possible. Patient will receive Ativan 1 mg IV every 4 hours as needed anxiety or restlessness. Smoking cessation is advised and counseled briefly at the bedside. A nicotine replacement patch is available for the patient's use, if desired. - Time Time Spent with patient: 25-34 minutes
[2019-11-03] MEDS: BENZTROPINE MESYLATE 1 MG TABLET PO SCH (21:25)
[2019-11-04] MEDS: HEPARIN SOD (PORCINE) 5,000 UNIT/ML 1 ML VIAL SUBCUT SCH ×3 (05:04→22:55)
[2019-11-04 05:44] LABS: HEMATOCRIT 33.3 % (36.0-47.0); HEMOGLOBIN 11.5 g/dL (12.0-15.5); MEAN CORPUSCULAR HEMOGLOBIN 30.4 pg (27.0-33.4); MEAN CORPUSCULAR HGB CONC 34.7 g/dL (32.0-36.0); MEAN CORPUSCULAR VOLUME 88 fl (80-97); PLATELET COUNT 147 10^3/uL (150-450); RED CELL DISTRIBUTION WIDTH 14.1 % (11.5-14.0)
[2019-11-04 05:49] LABS: INTERNATIONAL RATION (INR) 2.85; PROTHROMBIN TIME 30.5 SEC (11.4-15.4)
[2019-11-04 06:08] LABS: ALBUMIN 2.9 g/dL (3.5-5.0); ALKALINE PHOSPHATASE 118 U/L (38-126); ANION GAP 9 (5-19); BILIRUBIN,DIRECT 1.8 mg/dL (0.0-0.4); BILIRUBIN,TOTAL 3.5 mg/dL (0.2-1.3); BLOOD UREA NITROGEN 15 mg/dL (7-20); CALCIUM 8.3 mg/dL (8.4-10.2); CARBON DIOXIDE 24 mmol/L (22-30); CHLORIDE 101 mmol/L (98-107); GLUCOSE 100 mg/dL (75-110); TOTAL PROTEIN 5.2 g/dL (6.3-8.2)
[2019-11-04 06:33] LABS: ASPARTATE AMINO TRANSFERASE 2777 U/L (14-36)
[2019-11-04 06:34] LABS: POTASSIUM 2.6 mmol/L (3.6-5.0)
[2019-11-04] MEDS: POTASSIUM CHLORIDE 20 MEQ/50 ML RTU IV SCH ×2 (08:03→09:37)
[2019-11-04] MEDS: POTASSIUM CHLORIDE 10 MEQ TABLET.ER PO SCH ×2 (08:04→13:04)
[2019-11-04] MEDS: DOCUSATE SODIUM 100 MG CAPSULE PO SCH ×2 (09:36→17:41)
[2019-11-04] MEDS: BUSPIRONE HCL 10 MG TABLET PO SCH ×2 (09:36→22:45)
[2019-11-04] MEDS: OLANZAPINE 5 MG TABLET PO SCH ×2 (09:36→22:45)
[2019-11-04] MEDS: PANTOPRAZOLE SODIUM 40 MG VIAL IV SCH ×2 (09:37→22:44)
[2019-11-04] MEDS: DEXTROSE 5% IV PRN ×4 (10:14→17:41)
[2019-11-04] MEDS: WATER IV PRN ×4 (10:14→17:41)
[2019-11-04] MEDS: ACETYLCYSTEINE IV PRN ×4 (10:14→17:41)
[2019-11-04 10:27] LABS: PROTHROMBIN TIME 72.7 SEC (11.4-15.4)
[2019-11-04 10:28] LABS: INTERNATIONAL RATION (INR) 8.44
[2019-11-04] MEDS ORDERED: POTASSIUM CHLORIDE 20 MEQ/50 ML RTU IV ONE (13:45)
--- NOTE | 2019-11-04 15:41 | PDOC PROGRESS REPORT ---
Subjective Progress Note for:: 11/04/19 Subjective:: No adverse events overnight. She states she was feeling a little nauseated yesterday but she feels better today. She still does not have much of an appetite. Blood pressures have been stable. No evidence of any bleeding. Reason For Visit: ACUTE ACETAINOPHEN OVERDOSE,INTENTIONAL Physical Exam Vital Signs: Temp Pulse Resp BP Pulse Ox 98.1 F 82 19 91/47 L 99 11/04/19 12:10 11/04/19 14:00 11/04/19 12:10 11/04/19 12:10 11/04/19 12:10 Intake & Output 11/03/19 11/04/19 11/05/19 06:59 06:59 06:59 Intake Total 1373 1036 619 Output Total 300 900 Balance 1073 136 619 Weight 57.7 kg 58.8 kg General appearance: PRESENT: no acute distress, cooperative Respiratory exam: PRESENT: clear to auscultation jonny, symmetrical, unlabored. ABSENT: accessory muscle use, chest wall tenderness, crackles, prolonged expiratory phas, rhonchi, tachypnea, wheezes Cardiovascular exam: PRESENT: RRR, +S1, +S2 Pulses: PRESENT: normal carotid pulses Vascular exam: PRESENT: normal capillary refill GI/Abdominal exam: PRESENT: normal bowel sounds, soft. ABSENT: distended, guarding, rebound, tenderness Extremities exam: ABSENT: clubbing, pedal edema Musculoskeletal exam: PRESENT: normal inspection. ABSENT: deformity Neurological exam: PRESENT: alert, awake, oriented to person, oriented to place, oriented to time, oriented to situation, CN II-XII grossly intact Psychiatric exam: PRESENT: flat affect Skin exam: PRESENT: dry, warm. ABSENT: jaundice Results Laboratory Results: 11/04/19 05:05 11/04/19 05:05 11/04/19 11/04/19 05:05 05:05 WBC 9.0 RBC 3.80 Hgb 11.5 L Hct 33.3 L MCV 88 MCH 30.4 MCHC 34.7 RDW 14.1 H Plt Count 147 L Sodium 133.6 L Potassium 2.6 L* Chloride 101 Carbon Dioxide 24 Anion Gap 9 BUN 15 Creatinine 1.18 Est GFR ( Amer) > 60 Glucose 100 Calcium 8.3 L Magnesium 1.9 Total Bilirubin 3.5 H AST 2777 H Alkaline Phosphatase 118 Total Protein 5.2 L Albumin 2.9 L Assessment and Plan - Diagnosis (1) Depression Qualifiers: Depression Type: unspecified Qualified Code(s): F32.9 - Major depressive disorder, single episode, unspecified Is this a current diagnosis for this admission?: Yes Plan: Psychiatry has cleared her from psychiatric services. We have started medications that they have recommended. (2) Elevated liver function tests Is this a current diagnosis for this admission?: Yes Plan: We will keep her on acetylcysteine until her INR is less than 2 and her ALT is trending down substantially, and it should be less than half of its peak before the acetylcysteine is discontinued. (3) Suicide attempt by acetaminophen overdose Qualifiers: Encounter type: initial encounter Qualified Code(s): T39.1X2A - Poisoning by 4-Aminophenol derivatives, intentional self-harm, initial encounter Is this a current diagnosis for this admission?: Yes Plan: As previously noted, she has been cleared from psychiatric services (4) Tobacco use disorder Is this a current diagnosis for this admission?: Yes Plan: We will encourage cessation (5) Acute liver failure without hepatic coma Is this a current diagnosis for this admission?: Yes Plan: She continues on acetylcysteine. INR is down to 2.8. No evidence of mental status changes or hemodynamic instability. No evidence of acidosis, but her creatinine has been slowly creeping up. Still within the normal range. Transaminases have been trending down. I spoke with Dr. Antoine, a school inspector at [facility], who recommends continuing acetylcysteine until her INR is less than 2 and her ALT is less than half of its peak. Also checking for some secondary causes of acute liver failure. - Plan Summary Summary: Patient is admitted to [facility] where she will receive routine supportive and symptomatic cares. She will receive intravenous Mucomyst as per poison control dosing guidelines. Serial liver function studies and acetaminophen levels will be obtained as well as CBCs, metabolic profiles and magnesium levels when required. Blood sugar will be monitored every 6 hours. Patient will be treated with IV fluids containing 5% dextrose. Psychiatry consultation will be obtained as soon as possible. Patient will receive Ativan 1 mg IV every 4 hours as needed anxiety or restlessness. Smoking cessation is advised and counseled briefly at the bedside. A nicotine replacement patch is available for the patient's use, if desired. - Time Time Spent with patient: 25-34 minutes
[2019-11-04] MEDS: BENZTROPINE MESYLATE 1 MG TABLET PO SCH (22:45)
[2019-11-05] MEDS: WATER IV PRN ×6 (02:37→16:39)
[2019-11-05] MEDS: ACETYLCYSTEINE IV PRN ×6 (02:37→16:39)
[2019-11-05] MEDS: DEXTROSE 5% IV PRN ×6 (02:37→16:39)
[2019-11-05] MEDS: HEPARIN SOD (PORCINE) 5,000 UNIT/ML 1 ML VIAL SUBCUT SCH ×3 (05:55→21:30)
[2019-11-05 06:36] LABS: HEPATITS B SURFACE ANTIGEN Negative (Negative)
[2019-11-05 06:50] LABS: INTERNATIONAL RATION (INR) 1.74; PROTHROMBIN TIME 20.6 SEC (11.4-15.4)
[2019-11-05 07:01] LABS: ALBUMIN 2.5 g/dL (3.5-5.0); ANION GAP 6 (5-19); BLOOD UREA NITROGEN 8 mg/dL (7-20); CALCIUM 8.4 mg/dL (8.4-10.2); CARBON DIOXIDE 22 mmol/L (22-30); CHLORIDE 109 mmol/L (98-107); GLUCOSE 108 mg/dL (75-110); POTASSIUM 3.2 mmol/L (3.6-5.0)
[2019-11-05 07:02] LABS: ALKALINE PHOSPHATASE 99 U/L (38-126); ASPARTATE AMINO TRANSFERASE 540 U/L (14-36); BILIRUBIN,DIRECT 2.1 mg/dL (0.0-0.4); BILIRUBIN,TOTAL 3.8 mg/dL (0.2-1.3); TOTAL PROTEIN 4.8 g/dL (6.3-8.2)
[2019-11-05 07:03] LABS: HEPATITIS C VIRUS ANTIBODY <0.1 s/co ratio (0.0-0.9)
[2019-11-05] MEDS ORDERED: POTASSIUM CHLORIDE 10 MEQ TABLET.ER PO ONE (09:00)
[2019-11-05] MEDS: BUSPIRONE HCL 10 MG TABLET PO SCH ×2 (09:54→21:29)
[2019-11-05] MEDS: DOCUSATE SODIUM 100 MG CAPSULE PO SCH ×2 (09:54→17:07)
[2019-11-05] MEDS: OLANZAPINE 5 MG TABLET PO SCH ×2 (09:54→21:29)
[2019-11-05] MEDS: PANTOPRAZOLE SODIUM 40 MG VIAL IV SCH ×2 (09:54→21:29)
[2019-11-05] MEDS: POTASSIUM CHLORIDE 20 MEQ PACKET PO SCH ×2 (13:45→21:29)
[2019-11-05 14:52] LABS: ANTINUCLEAR ANTIBODIES Negative (Negative)
[2019-11-05] MEDS ORDERED: NICOTINE 7 MG/24 HR PATCH.TD24 TD PRN (17:07)
--- NOTE | 2019-11-05 17:08 | PDOC PROGRESS REPORT ---
Subjective Progress Note for:: 11/05/19 Subjective:: The Patient is a 34-year-old female with a past medical history of depression, PTSD, prior suicide attempt, who was admitted 11/01/2019 with intentional Tylenol overdose. Patient was seen on morning rounds. She was found resting in bed, comfortably, on room air. Is noted to be somewhat anxious though with a flat affect and avoiding eye contact and discussing brought her to the hospital. Her interest is somewhat peaked when I mentioned that her eyes are not jaundiced; does ask appropriate questions regarding symptoms of liver failure and what her laboratory evaluation today showed. She does admit to continued stress/depression but tells me that she does not wish to discuss this with me today. She denies headache, dizziness, chest pain, palpitations, dyspnea, orthopnea, abdominal pain, nausea vomiting and diarrhea. She has no questions or concerns at this time. No concerns per nursing. Reason For Visit: ACUTE ACETAINOPHEN OVERDOSE,INTENTIONAL Physical Exam Vital Signs: Temp Pulse Resp BP Pulse Ox 98.6 F 88 18 106/63 100 11/05/19 15:04 11/05/19 15:04 11/05/19 15:04 11/05/19 15:04 11/05/19 15:04 Intake & Output 11/04/19 11/05/19 11/06/19 06:59 06:59 06:59 Intake Total 1036 2319 1278 Output Total 900 Balance 136 2319 1278 Weight 58.8 kg 58.4 kg General appearance: PRESENT: no acute distress, well-developed, well-nourished Head exam: PRESENT: atraumatic, normocephalic Eye exam: PRESENT: conjunctiva pink, EOMI, PERRLA, scleral icterus - Scant Mouth exam: PRESENT: moist, tongue midline Respiratory exam: PRESENT: clear to auscultation jonny, symmetrical, unlabored. ABSENT: rales, rhonchi, wheezes Cardiovascular exam: PRESENT: RRR, +S1, +S2. ABSENT: diastolic murmur, rubs, systolic murmur Pulses: PRESENT: normal dorsalis pedis pul Vascular exam: PRESENT: normal capillary refill GI/Abdominal exam: PRESENT: normal bowel sounds, soft. ABSENT: distended, guarding, mass, organolmegaly, rebound, tenderness Rectal exam: PRESENT: deferred Extremities exam: PRESENT: full ROM. ABSENT: calf tenderness, clubbing, pedal edema Musculoskeletal exam: PRESENT: ambulatory Neurological exam: PRESENT: alert, awake, oriented to person, oriented to place, oriented to time, oriented to situation, CN II-XII grossly intact. ABSENT: motor sensory deficit Psychiatric exam: PRESENT: anxious, flat affect, normal mood. ABSENT: homicidal ideation, suicidal ideation Skin exam: PRESENT: dry, intact, warm. ABSENT: cyanosis, rash Results Laboratory Results: 11/04/19 05:05 11/05/19 06:06 11/05/19 06:06 Sodium 136.6 L Potassium 3.2 L Chloride 109 H Carbon Dioxide 22 Anion Gap 6 BUN 8 Creatinine 0.94 Est GFR ( Amer) > 60 Glucose 108 Calcium 8.4 Total Bilirubin 3.8 H AST 540 H Alkaline Phosphatase 99 Total Protein 4.8 L Albumin 2.5 L Assessment and Plan - Diagnosis (1) Acute liver failure without hepatic coma Is this a current diagnosis for this admission?: Yes Plan: Gradual improvement. ADDIE negative. Hepatitis panel negative. Patient was admitted to [facility] on continuous cardiac telemetry. She was started on IV acetylcysteine. T he previous provider spoke with Dr. Antoine, a veterinarian assistant at [facility], who recommends continuing acetylcysteine until her INR is less than 2 and her ALT is less than half of its peak. Also recommended checking for some secondary causes of acute liver failure. AST and ALT are trending down; now less than half of her peak. However, total bili and direct bili have increased. Total protein and albumin slightly decreased. Therefore, I have continued acetylcysteine throughout this shift and will provide gentle IV fluids as she has poor p.o. intake. Follow-up CMP. (2) Elevated liver function tests Is this a current diagnosis for this admission?: Yes Plan: Trending down. Continue IV acetylcysteine through today; discontinue this evening. Continue IV fluids. Follow-up CMP in the morning. Should any of her LFTs bump upwards, will need to reach out to [facility] hepatology again and potentially resume acetylcysteine. (3) Depression Qualifiers: Depression Type: unspecified Qualified Code(s): F32.9 - Major depressive disorder, single episode, unspecified Is this a current diagnosis for this admission?: Yes Plan: Psychiatry has cleared her from psychiatric services. We have started medications that they have recommended. As mental health services evaluated her 4 days ago, the patient continues to have an anxious/flat affect with me, and has made vague suggestive statements to nursing, I have asked the psychiatric team to see her again prior to discharge. I would also appreciate it if they could assist with setting up her initial follow-up referrals/appointments as they have made recommendations for outpatient therapy services that will be vital to her successful transition. (4) Hypokalemia Is this a current diagnosis for this admission?: Yes Plan: P.o. replacement. Follow-up chemistry. (5) Suicide attempt by acetaminophen overdose Qualifiers: Encounter type: initial encounter Qualified Code(s): T39.1X2A - Poisoning by 4-Aminophenol derivatives, intentional self-harm, initial encounter Is this a current diagnosis for this admission?: Yes Plan: Mental health consultations as above. (6) Tobacco use disorder Is this a current diagnosis for this admission?: Yes Plan: Smoking cessation encouraged. Nicotine replacement therapies provided. - Time Time Spent with patient: 35 or more minutes Medications reviewed and adjusted accordingly: Yes Anticipated discharge: Home
[2019-11-05] MEDS: NORMAL SALINE 1000 ML 1,000 ML IV PRN (18:09)
[2019-11-05] MEDS: BENZTROPINE MESYLATE 1 MG TABLET PO SCH (21:29)
[2019-11-06] MEDS: NORMAL SALINE 1000 ML 1,000 ML IV PRN ×3 (02:10→17:19)
[2019-11-06] MEDS: POTASSIUM CHLORIDE 20 MEQ PACKET PO SCH (06:10)
[2019-11-06] MEDS: HEPARIN SOD (PORCINE) 5,000 UNIT/ML 1 ML VIAL SUBCUT SCH ×3 (06:11→21:18)
[2019-11-06 07:00] LABS: INTERNATIONAL RATION (INR) 1.46; PROTHROMBIN TIME 17.9 SEC (11.4-15.4)
[2019-11-06 07:20] LABS: ALBUMIN 2.4 g/dL (3.5-5.0); ALKALINE PHOSPHATASE 90 U/L (38-126); ANION GAP 6 (5-19); ASPARTATE AMINO TRANSFERASE 188 U/L (14-36); BILIRUBIN,DIRECT 1.2 mg/dL (0.0-0.4); BILIRUBIN,TOTAL 2.7 mg/dL (0.2-1.3); BLOOD UREA NITROGEN 5 mg/dL (7-20); CALCIUM 8.2 mg/dL (8.4-10.2); CARBON DIOXIDE 22 mmol/L (22-30); CHLORIDE 109 mmol/L (98-107); POTASSIUM 3.1 mmol/L (3.6-5.0); TOTAL PROTEIN 4.5 g/dL (6.3-8.2)
[2019-11-06 07:22] LABS: GLUCOSE 65 mg/dL (75-110)
[2019-11-06] MEDS: DOCUSATE SODIUM 100 MG CAPSULE PO SCH ×2 (09:09→17:19)
[2019-11-06] MEDS: OLANZAPINE 5 MG TABLET PO SCH ×2 (09:09→21:20)
[2019-11-06] MEDS: PANTOPRAZOLE SODIUM 40 MG VIAL IV SCH ×2 (09:09→21:20)
[2019-11-06] MEDS: BUSPIRONE HCL 10 MG TABLET PO SCH ×2 (09:09→21:21)
[2019-11-06] MEDS ORDERED: POLYETHYLENE GLYCOL 3350 POWDER 17 GM/1 PACKET PO ONE (17:36)
[2019-11-06] MEDS ORDERED: POTASSIUM CHLORIDE 10 MEQ TABLET.ER PO ONE (17:39)
--- NOTE | 2019-11-06 17:42 | PDOC PROGRESS REPORT ---
Subjective Progress Note for:: 11/06/19 Subjective:: The Patient is a 34-year-old female with a past medical history of depression, PTSD, prior suicide attempt, who was admitted 11/01/2019 with intentional Tylenol overdose. Patient was seen on afternoon rounds. She was found resting in bed, comfortably, on room air. Improved alertness, eye contact, and interaction today. Mood appeared more euthymic with congruent affect; does ask appropriate questions regarding symptoms of liver failure and what her laboratory evaluation today showed. She denies headache, dizziness, chest pain, palpitations, dyspnea, orthopnea, abdominal pain, nausea vomiting and diarrhea. Possible constipation; no bm x several days but without discomfort. She has no other questions or concerns at this time. No concerns per nursing. Reason For Visit: ACUTE ACETAINOPHEN OVERDOSE,INTENTIONAL Physical Exam Vital Signs: Temp Pulse Resp BP Pulse Ox 98.5 F 77 18 104/61 100 11/06/19 11:37 11/06/19 14:00 11/06/19 11:37 11/06/19 11:37 11/06/19 11:37 Intake & Output 11/05/19 11/06/19 11/07/19 06:59 06:59 06:59 Intake Total 2319 2519 1875 Balance 2319 2519 1875 Weight 58.4 kg 59.5 kg General appearance: PRESENT: no acute distress, well-developed, well-nourished Head exam: PRESENT: atraumatic, normocephalic Eye exam: PRESENT: conjunctiva pink, EOMI, PERRLA. ABSENT: scleral icterus Mouth exam: PRESENT: moist, tongue midline Respiratory exam: PRESENT: clear to auscultation jonny, symmetrical, unlabored. ABSENT: rales, rhonchi, wheezes Cardiovascular exam: PRESENT: RRR. ABSENT: diastolic murmur, rubs, systolic murmur Pulses: PRESENT: normal dorsalis pedis pul Vascular exam: PRESENT: normal capillary refill GI/Abdominal exam: PRESENT: normal bowel sounds, soft. ABSENT: distended, guarding, mass, organolmegaly, rebound, tenderness Rectal exam: PRESENT: deferred Extremities exam: PRESENT: full ROM. ABSENT: calf tenderness, clubbing, pedal edema Musculoskeletal exam: PRESENT: ambulatory Neurological exam: PRESENT: alert, awake, oriented to person, oriented to place, oriented to time, oriented to situation, CN II-XII grossly intact. ABSENT: motor sensory deficit Psychiatric exam: PRESENT: appropriate affect, normal mood. ABSENT: homicidal i deation, suicidal ideation Skin exam: PRESENT: dry, intact, warm. ABSENT: cyanosis, rash Results Laboratory Results: 11/04/19 05:05 11/06/19 05:59 11/06/19 05:59 Sodium 136.7 L Potassium 3.1 L Chloride 109 H Carbon Dioxide 22 Anion Gap 6 BUN 5 L Creatinine 0.81 Est GFR ( Amer) > 60 Glucose 65 L Calcium 8.2 L Total Bilirubin 2.7 H AST 188 H Alkaline Phosphatase 90 Total Protein 4.5 L Albumin 2.4 L Assessment and Plan - Diagnosis (1) Acute liver failure without hepatic coma Is this a current diagnosis for this admission?: Yes Plan: Continues to improve ADDIE negative. Hepatitis panel negative. Patient was admitted to [facility] on continuous cardiac telemetry. IV acetylcysteine x 4 days. The previous provider spoke with Dr. Antoine, a puttying and calking supervisor at [facility], who recommends continuing acetylcysteine until her INR is less than 2 and her ALT is less than half of its peak. Also recommended checking for some secondary causes of acute liver failure. Continue gentle IVF. Follow-up CMP. (2) Elevated liver function tests Is this a current diagnosis for this admission?: Yes Plan: Trending down. IV acetylcysteine x4 days Continue IV fluids. Follow-up CMP in the morning. (3) Depression Qualifiers: Depression Type: unspecified Qualified Code(s): F32.9 - Major depressive disorder, single episode, unspecified Is this a current diagnosis for this admission?: Yes Plan: Psychiatry has cleared her from psychiatric services. We have started medications that they have recommended. Discussed with Michael (PURIFICATION OPERATOR) today about concerns regarding patient's flat affect yesterday. She will reevaluate the patient today. New medication recommendations provided (decrease Zyprexa, start Prozac). (4) Hypokalemia Is this a current diagnosis for this admission?: Yes Plan: Additional oral replacement today. Should improve now that patient's oral intake is up. Follow-up chemistry. (5) Suicide attempt by acetaminophen overdose Qualifiers: Encounter type: initial encounter Qualified Code(s): T39.1X2A - Poisoning by 4-Aminophenol derivatives, intentional self-harm, initial encounter Is this a current diagnosis for this admission?: Yes Plan: Mental health consultations as above. (6) Tobacco use disorder Is this a current diagnosis for this admission?: Yes Plan: Smoking cessation encouraged. Nicotine replacement therapies provided. - Time Time Spent with patient: 25-34 minutes Medications reviewed and adjusted accordingly: Yes Anticipated discharge: Home Within: within 24 hours
[2019-11-06] MEDS: BENZTROPINE MESYLATE 1 MG TABLET PO SCH (21:21)
--- NOTE | 2019-11-06 21:44 | PSYCHOLOGICAL NOTE ---
Psych Note - Psych Note Date seen by psych provider: 11/06/19 Time seen by psych provider: 20:45 Psych Note: Reason for re-consult: concerns for flat affect and depressed presentation updated Medication recommendations per [facility] contracted psychiatrist Dr. Ivan BARRETT are as follows Please discontinue Cogentin Please decrease Zyprexa to 2.5 mg twice daily Please add Prozac 20 mg daily please continue Buspar 5mg twice daily Impression/Plan: Patient does not meet IVC criteria per [place] GS 122C. Please contact the behavioral health team prior to discharge so outpatient mental health services can be set up. Dr. Portillo was consulted on the care and management of this patient; attending physician is in agreement with recommendations and disposition.
[2019-11-07] MEDS: NORMAL SALINE 1000 ML 1,000 ML IV PRN (01:41)
[2019-11-07 05:53] LABS: PROTHROMBIN TIME 16.3 SEC (11.4-15.4)
[2019-11-07] MEDS: HEPARIN SOD (PORCINE) 5,000 UNIT/ML 1 ML VIAL SUBCUT SCH (06:06)
[2019-11-07 06:08] LABS: ALBUMIN 2.2 g/dL (3.5-5.0); ALKALINE PHOSPHATASE 108 U/L (38-126); ASPARTATE AMINO TRANSFERASE 104 U/L (14-36); BILIRUBIN,DIRECT 0.7 mg/dL (0.0-0.4); BILIRUBIN,TOTAL 1.7 mg/dL (0.2-1.3); BLOOD UREA NITROGEN 7 mg/dL (7-20); CALCIUM 8.3 mg/dL (8.4-10.2); CARBON DIOXIDE 21 mmol/L (22-30); CHLORIDE 113 mmol/L (98-107); GLUCOSE 78 mg/dL (75-110); POTASSIUM 3.6 mmol/L (3.6-5.0); TOTAL PROTEIN 4.5 g/dL (6.3-8.2)
[2019-11-07 06:16] LABS: ANION GAP 3 (5-19)
[2019-11-07] MEDS: OLANZAPINE 5 MG TABLET PO SCH (09:20)
[2019-11-07] MEDS: PANTOPRAZOLE SODIUM 40 MG VIAL IV SCH (09:20)
[2019-11-07] MEDS: DOCUSATE SODIUM 100 MG CAPSULE PO SCH (09:20)
[2019-11-07] MEDS: BUSPIRONE HCL 10 MG TABLET PO SCH (09:20)
[2019-11-07 09:53] VITALS: BP 126/75
[2019-11-07] MEDS ORDERED: POLYETHYLENE GLYCOL 3350 POWDER 17 GM/1 PACKET PO SCH (10:00)
[2019-11-07] MEDS ORDERED: FLUOXETINE HCL 20 MG CAPSULE PO SCH ×2 (10:00)
[2019-11-08 10:37] LABS: HEPATITIS C QUANTITATION HCV Not Detected IU/mL (.)
== END 2019-11-07 10:08 | disposition home or self-care (01) | DRG 918 ==
LOC: ER 21:29 → EH 11-01 00:55 → 3S 11-01 03:23
PROVIDERS: ADMIT Emergency Medicine; ATTEND Registered Nurse
DX: T39.1X2A Poisoning by 4-Aminophenol derivatives, intentional self-harm, initial encounter (principal); F17.200 Nicotine dependence, unspecified, uncomplicated; Z90.49 Acquired absence of other specified parts of digestive tract; Z82.49 Family history of ischemic heart disease and other diseases of the circulatory system; Z83.3 Family history of diabetes mellitus; F32.9 Major depressive disorder, single episode, unspecified; E16.2 Hypoglycemia, unspecified; K72.90 Hepatic failure, unspecified without coma; E87.6 Hypokalemia; F43.10 Post-traumatic stress disorder, unspecified; Z91.5 Personal history of self-harm
CPT/HCPCS: 36415; 80048; 80053; 80074; 80076; 80307; 81001; 82140; 82962; 83735; 85025; 85027; 85610; 85730; 86038; 87070; 87522; 93005; 93010; 99291; C9113; J0132; J2405; J3480; J3490; J7030; J7060

== ENCOUNTER → 2019-11-12 | Outpatient (CLI) | payer OTHER ==
[2019-11-12 15:51] LABS: ABSOLUTE BASOPHILS # (AUTO) 0.1 10^3/uL (0.0-0.2); ABSOLUTE EOSINOPHILS # (AUTO) 0.3 10^3/uL (0.0-0.6); ABSOLUTE LYMPHOCYTES (AUTO) 2.8 10^3/uL (0.5-4.7); ABSOLUTE MONOCYTES (AUTO) 0.9 10^3/uL (0.1-1.4); ABSOLUTE NEUT (AUTO) 6.8 10^3/uL (1.7-8.2); EOSINOPHILS % (AUTO) 2.8 % (0-6); HEMATOCRIT 28.2 % (36.0-47.0); HEMOGLOBIN 9.6 g/dL (12.0-15.5); LYMPHOCYTES % (AUTO) 25.7 % (13-45); MEAN CORPUSCULAR HGB CONC 34.2 g/dL (32.0-36.0); MEAN CORPUSCULAR VOLUME 91 fl (80-97); PLATELET COUNT 157 10^3/uL (150-450); RED BLOOD COUNT 3.11 10^6/uL (3.72-5.28); RED CELL DISTRIBUTION WIDTH 16.4 % (11.5-14.0); SEGMENTED NEUTROPHILS % (AUTO) 62.5 % (42-78); TOTAL CELLS COUNTED % (AUTO) 100 %; WHITE BLOOD COUNT 10.9 10^3/uL (4.0-10.5)
[2019-11-12 15:56] LABS: INTERNATIONAL RATION (INR) 0.93; PROTHROMBIN TIME 12.4 SEC (11.4-15.4)
[2019-11-12 16:09] LABS: ALKALINE PHOSPHATASE 102 U/L (38-126); ASPARTATE AMINO TRANSFERASE 48 U/L (14-36); BILIRUBIN,DIRECT 0.1 mg/dL (0.0-0.4); BILIRUBIN,TOTAL 0.6 mg/dL (0.2-1.3); BLOOD UREA NITROGEN 12 mg/dL (7-20); CALCIUM 8.9 mg/dL (8.4-10.2); GLUCOSE 85 mg/dL (75-110); POTASSIUM 3.8 mmol/L (3.6-5.0)
[2019-11-12 16:14] LABS: CARBON DIOXIDE 24 mmol/L (22-30); CHLORIDE 109 mmol/L (98-107)
[2019-11-12 16:30] LABS: ANION GAP 4 (5-19)
== END ==
LOC: CCC 15:10
PROVIDERS: ATTEND Internal Medicine
DX: K76.9 Liver disease, unspecified (principal)
CPT/HCPCS: 36415; 80053; 82977; 85025; 85610

== ENCOUNTER → 2019-12-18 | Outpatient (CLI) | payer OTHER ==
[2019-12-18 15:18] LABS: ALBUMIN 4.2 g/dL (3.5-5.0); ALKALINE PHOSPHATASE 64 U/L (38-126); ASPARTATE AMINO TRANSFERASE 34 U/L (14-36); BILIRUBIN,TOTAL 0.7 mg/dL (0.2-1.3); TOTAL PROTEIN 7.1 g/dL (6.3-8.2)
== END ==
LOC: CCC 13:49
PROVIDERS: ATTEND Internal Medicine
DX: K72.00 Acute and subacute hepatic failure without coma (principal); R94.5 Abnormal results of liver function studies
CPT/HCPCS: 36415; 80076